=== PATIENT | female | born 2000 | race Caucasian/White ===

== ENCOUNTER 2023-04-10 06:44 | Day surgery (SDC) | payer OTHER, MEDICAID ==
[2023-04-03 14:34] LABS: BASOPHILS % (AUTO) 0.4 % (0-1); EOSINOPHILS # (AUTO) 0.1 X10'3 (0-0.9); LYMPHOCYTES # (AUTO) 2.4 X10'3 (1.1-4.8); LYMPHOCYTES % (AUTO) 22.1 % (21-51); MEAN CORPUSCULAR HEMOGLOBIN 25.7 PG (27.0-31.0); MEAN CORPUSCULAR VOLUME 77.9 FL (78-98); MEAN PLATELET VOLUME 8.7 FL (7.4-10.4); MONOCYTES # (AUTO) 0.7 X10'3 (0-0.9); MONOCYTES % (AUTO) 6.2 % (2-12); NEUTROPHILS # (AUTO) 7.5 X10'3 (1.8-7.7); NEUTROPHILS % (AUTO) 70.3 % (42-75); PRE OP HEMATOCRIT 38.4 % (35.0-45.0); PRE OP HEMOGLOBIN 12.7 g/dL (12.0-16.0); PRE OP PLATELET COUNT 323 X10'3 (140-440); PRE OP WHITE BLOOD COUNT 10.6 10'3 (4.8-10.8); RED BLOOD COUNT 4.93 X10'6 (4.20-5.60); RED CELL DISTRIBUTION WIDTH 15.6 % (11.5-14.5)
[2023-04-03 14:40] LABS: HCG SERUM QL NEGATIVE
[2023-04-03 14:42] LABS: ALBUMIN 3.9 G/DL (3.4-5.0); ALKALINE PHOSPHATASE 81 IU/L (46-116); BLOOD UREA NITROGEN 12 MG/DL (7-18); BUN/CREATININE RATIO 13.8 (10.0-20.0); CALCIUM 9.3 MG/DL (8.5-10.1); CHLORIDE 103 MMOL/L (99-107); CREATININE 0.87 MG/DL (0.40-0.90); PRE OP ALT 23 U/L (30-65); PRE OP ANION GAP 6 (8-16); PRE OP AST 16 U/L (10-37); PRE OP BILIRUB, TOTAL 0.5 MG/DL (0.0-1.0); PRE OP GLUCOSE 88 MG/DL (70-104); PRE OP POTASSIUM 3.7 MMOL/L (3.4-5.1); PRE OP SODIUM 138 MMOL/L (135-145); TOTAL PROTEIN 7.9 G/DL (6.4-8.2); eGFR 79 ML/MIN
[2023-04-10] VITALS (13 sets, daily range): BP systolic 123–149; BP diastolic 55–89; PULSE 54–77; RESP 11–25; TEMP 98.3; O2SAT 95–100
[~2023-04-10] VITALS: Ht 160 cm; Wt 98.3 kg
[~2023-04-10 06:44] MED LIST: ALBU8HFA PO; famotidine 20mg tablet PO ONE; ringers solution, lacted 1,000 ML IV SCH
[2023-04-10] MEDS ORDERED: ringers solution, lacted 1,000 ML IV SCH (07:30)
[2023-04-10] MEDS ORDERED: acetaminophen 1,000mg/100ml IV 100 ML IV PRN (07:30)
[2023-04-10] MEDS ORDERED: ondansetron/PF 4mg/2ml inj IV PRN (07:30)
[2023-04-10] MEDS ORDERED: hydrALAZINE 20mg/ml inj. IV PRN (07:30)
[2023-04-10] MEDS ORDERED: morphine 4 MG/ML inj SYRINge IV PRN (07:30)
[2023-04-10] MEDS ORDERED: proCHLORperazine 10 MG/2 ml inj IV PRN (07:30)
[2023-04-10] MEDS ORDERED: labetalol 20mg/4ml (5mg/ml) syringe IV PRN (07:30)
[2023-04-10] MEDS ORDERED: morphine 2 MG/ML inj. syringe IV PRN (07:30)
[2023-04-10] MEDS ORDERED: meperidine/PF 25mg/ml syringe IV PRN ×3 (07:30)
[2023-04-10 07:35] LABS: PREOP URINE HCG NEGATIVE (NEGATIVE)
[2023-04-10] MEDS ORDERED: sevoflurane 250ml liquid IH ONE (08:48)
[2023-04-10] MEDS ORDERED: fentaNYL/PF 50MCG/1 ML 2ML syringe ONE (08:59)
[2023-04-10] MEDS ORDERED: midazolam 1 mg/ML 2ml injection ONE (08:59)
[2023-04-10] MEDS ORDERED: ondansetron/PF 4mg/2ml inj ONE (09:08)
[2023-04-10] MEDS ORDERED: LIDOcaine 2% (20mg/ml) 5ml vial ONE (09:08)
[2023-04-10] MEDS ORDERED: dexamethasone sod phosphate 4mg/ml inj. ONE (09:08)
[2023-04-10] MEDS ORDERED: propofol inj 20 ML IV ONE (09:08)
[2023-04-10] MEDS ORDERED: oxyCODONE/APAP 5-325mg tablet PO ONE (09:40)
--- NOTE | 2023-04-10 09:50 | NUR ---
Received from OR via [facility], accompanied by Anesthesiologist DR STEPHENS and report given by Anesthesiologist. PT IS GROGGY BUT RESPONDS EASILY TO VERBAL STIMULI AND FOLLOWS COMMANDS. PT PLACED IN BEDSIDE MONITOR, VSS. PT IS IN SR WITH RATE IN 70'S. PT IS RECEIVING 6L O2 TO MASK AND TOLERATING WELL. WILL TITRATE DOWN PT TOLERATES. PT HAS 20G PIV TO LEFT HAND WITH LR INFUSING ORDERED. PT HAS PERIPAD IN PLACE THAT IS CDI. PT DENIES PAIN AT THIS TIME. WILL CONTINUE TO ASSESS
--- NOTE | 2023-04-10 11:58 | NUR ---
DC HOME: ALL DISCHARGE CRITERIA HAS BEEN MET. VSS, PAIN AT TOLERABLE LEVEL. ABLE TO SAFELY AMBULATE AND TRANSFER SELF. IV TAKEN OUT WITHOUT ANY COMPLICATIONS. ALL DISCHARGE INSTRUCTIONS COVERED WITH PATIENT AND ALL QUESTIONS ANSWERED. PATIENT TAKEN OUT VIA WHEELCHAIR TO PERSONAL VEHICLE WHERE YAEL DROVE PATIENT HOME.
== END 2023-04-10 11:47 | disposition home or self-care (01) ==
LOC: PAS 06:44
PROVIDERS: ATTEND Obstetrics & Gynecology
DX: N92.0 Excessive and frequent menstruation with regular cycle (principal); F41.9 Anxiety disorder, unspecified; F31.9 Bipolar disorder, unspecified; J45.909 Unspecified asthma, uncomplicated; G43.909 Migraine, unspecified, not intractable, without status migrainosus; Z87.442 Personal history of urinary calculi; Z79.2 Long term (current) use of antibiotics; Z79.891 Long term (current) use of opiate analgesic; Z79.1 Long term (current) use of non-steroidal anti-inflammatories (NSAID); Z79.899 Other long term (current) drug therapy; Z90.49 Acquired absence of other specified parts of digestive tract; Z98.51 Tubal ligation status; Z98.890 Other specified postprocedural states; Z80.41 Family history of malignant neoplasm of ovary; Z82.3 Family history of stroke; Z82.49 Family history of ischemic heart disease and other diseases of the circulatory system
CPT/HCPCS: 36415; 58563; 80053; 81025; 82948; 84703; 85025; J0131; J1100; J2175; J2250; J2405; J2704; J3010; J3490; J7030; J7120; Z7506; Z7512; A4355; A4618; A4649; A6258